=== PATIENT | female | born 1990 | race Caucasian/White ===

== ENCOUNTER 2022-07-14 15:26 | Emergency (ER) | payer OTHER ==
[2022-07-14 15:30] VITALS: BP 141/87; PULSE 102; RESP 18; TEMP 98.4; BMI 27.6
== END 2022-07-14 17:10 | disposition home or self-care (01) ==
LOC: JER 15:26 → JERFT 15:26
PROC: 0U9MXZZ Drainage of Vulva, External Approach (ICD-10-PCS; principal; 2022-07-14)
DX: N75.1 Abscess of Bartholin's gland (principal)
CPT/HCPCS: 10060; 99282-25